=== PATIENT | male | born 1975 | race Caucasian/White ===

== ENCOUNTER 2020-04-09 08:15 | Emergency (ER) | payer OTHER ==
[~2020-04-09] VITALS: Ht 170.1 cm; Wt 77.1 kg
[~2020-04-09 08:15] MED LIST: ASPIRIN325 M2 PO; BACTRIM DS 8001 TA1 PO; HYDROXYZINE PAM50 MG PO; MEDROL DOSEPAK4 MG PO; NAPROXEN220 MG PO; NKHM; ONDANSETRON4 MG PO; SINEMET 25-100M1 TAB PO; TRAMADOL HCL50 MG PO; TRIMOX500 MG PO; ULTRAM50 MG PO
[2020-04-09] MEDS ORDERED: KEFLEX500 M1 PO (10:12)
== END 2020-04-09 11:48 | disposition home or self-care (01) ==
LOC: ED 08:15
DX: S61.412A Laceration without foreign body of left hand, initial encounter (principal); Z91.018 Allergy to other foods; Z79.899 Other long term (current) drug therapy; W45.8XXA Other foreign body or object entering through skin, initial encounter; Y93.89 Activity, other specified; Y92.89 Other specified places as the place of occurrence of the external cause; Y99.8 Other external cause status

== ENCOUNTER 2020-07-28 22:33 | Emergency (ER) | payer OTHER ==
[~2020-07-28] VITALS: Ht 170.1 cm; Wt 72.6 kg
[~2020-07-28 22:33] MED LIST changes: +KEFLEX500 M1 PO
[2020-07-28] MEDS ORDERED: KEFLEX500 M1 PO (23:13)
== END 2020-07-28 23:53 | disposition home or self-care (01) ==
LOC: ED 22:33
DX: S61.411A Laceration without foreign body of right hand, initial encounter (principal); F17.200 Nicotine dependence, unspecified, uncomplicated; Z91.018 Allergy to other foods; Z79.899 Other long term (current) drug therapy; W25.XXXA Contact with sharp glass, initial encounter; Y93.89 Activity, other specified; Y92.89 Other specified places as the place of occurrence of the external cause; Y99.8 Other external cause status

== ENCOUNTER 2020-10-21 13:28 | Emergency (ER) | payer OTHER ==
[~2020-10-21] VITALS: Wt 77.1 kg
[2020-10-21] MEDS ORDERED: Bactroban Oint22 GM T (14:38)
[2020-10-21] MEDS ORDERED: VIBRAMYCIN100 MG PO (14:38)
== END 2020-10-21 15:01 | disposition home or self-care (01) ==
LOC: ED 13:28
DX: J32.9 Chronic sinusitis, unspecified (principal); Z79.899 Other long term (current) drug therapy

== ENCOUNTER 2022-10-16 18:52 | Emergency (ER) | payer OTHER ==
[~2022-10-16] VITALS: Ht 170.1 cm; Wt 81.6 kg
[~2022-10-16 18:52] MED LIST changes: +Bactroban Oint22 GM T; +VIBRAMYCIN100 MG PO
[2022-10-16] MEDS ORDERED: SEPTDS PO (19:47)
== END 2022-10-16 20:44 | disposition home or self-care (01) ==
LOC: ED 18:52
DX: L03.031 Cellulitis of right toe (principal); Z91.018 Allergy to other foods; Z98.890 Other specified postprocedural states

== ENCOUNTER 2022-12-17 13:32 | Emergency (ER) | payer OTHER ==
[~2022-12-17] VITALS: Wt 72.6 kg
[~2022-12-17 13:32] MED LIST changes: +AMLODIPINE BESYL5 MG PO; +AUGMENTIN 500500 M1 PO; +CEFADROXIL500 M1 PO; +KIMYRSA1200 MG IV; +LISINOPRIL10 M1 PO; +SEPTDS PO; +VITAMIN D350 MC2 PO; +ZOSYN 3.373.375 GM/1 IV
[2022-12-17 14:19] LABS: BASO # 0.1 10*3/uL (0.0-0.1); BASO % 0.7 % (0.0-1.0); EOS # 0.3 10*3/uL (0.0-0.4); EOS % 2.4 % (1.0-4.0); HEMATOCRIT 37.3 % (42.0-52.0); LYMPH # 1.3 10*3/uL (1.3-4.4); LYMPH % 10.4 % (27.0-41.0); MEAN CELL VOLUME 86.7 fl (80.0-94.0); MEAN CORPUSCULAR HGB 29.8 pg (27.0-31.0); MEAN CORPUSCULAR HGB CONC 34.3 g/dl (33.0-37.0); MEAN PLATELET VOLUME 9.5 fl (9.6-12.3); MONO # 0.6 10*3/uL (0.1-1.0); MONO % 5.1 % (3.0-9.0); NEUT % 81.1 % (47.0-73.0); PLATELET COUNT AUTOMATED 597 10*3/uL (130-400); RED CELL DISTRI WIDTH 14.7 % (0-14.5); WHITE BLOOD COUNT 12.3 10*3/uL (4.8-10.8)
[2022-12-17 14:36] LABS: ALKALINE PHOSPHATASE 77 U/L (46-116); BUN 14 mg/dl (9-23); CHLORIDE 103 mmol/L (98-107); POTASSIUM 3.4 mmol/L (3.4-5.1); SGPT/ALT 49 U/L (10-49); TOTAL PROTEIN 7.6 gm/dL (6.0-8.0)
== END 2022-12-17 15:31 | disposition home or self-care (01) ==
LOC: ED 13:32
PROVIDERS: Student in an Organized Health Care Education/Training Program
DX: G62.9 Polyneuropathy, unspecified (principal); Z98.890 Other specified postprocedural states; F17.200 Nicotine dependence, unspecified, uncomplicated; F19.10 Other psychoactive substance abuse, uncomplicated; F10.90 Alcohol use, unspecified, uncomplicated